=== PATIENT | female | born 1955 | race African-American/Black ===

== ENCOUNTER 2017-01-12 17:17 | Emergency (ER) | payer MEDICARE, OTHER ==
[~2017-01-12] VITALS: Ht 170.2 cm; Wt 107.0 kg
[2017-01-12] MEDS ORDERED: IBUPROFEN 600MG TABLET PO ONE (18:00)
[2017-01-12 18:22] LABS: BASOPHILS % 1.1 % (0.0-2.0); EOSINOPHILS % 1.9 % (0.0-5.0); HEMATOCRIT. 30.8 % (36.0-48.0); HEMOGLOBIN. 10.5 g/dL (12.0-16.0); LYMPHOCYTES % 41.8 % (20.0-50.0); MEAN CORPUSCULAR HEMOGLOBIN 31.8 pg (28.0-32.0); MEAN CORPUSCULAR VOLUME 93.7 fL (81.0-99.0); MEAN PLATELET VOLUME 8.6 fl (7.4-10.4); MONOCYTES % 8.9 % (2.0-8.0); NEUTROPHILS % 46.3 % (40.0-76.0); PLATELET 302 x1000/uL (130-400); RED BLOOD CELL COUNT 3.28 mill/uL (4.2-5.4); RED CELL DISTRIBUTION WIDTH 13.6 % (11.6-14.6)
[2017-01-12 18:25] LABS: CHLORIDE 101 mEq/L (98-107)
[2017-01-12 18:32] LABS: CARBON DIOXIDE 29 mEq/L (21-32)
[2017-01-12 18:37] LABS: TROPONIN I < 0.02 ng/mL (0.00-0.04)
[2017-01-12 18:49] LABS: D-DIMER 0.25 mg/L FEU (<0.50); PARTIAL THROMBOPLASTIN TIME 31.5 sec (24.0-34.0); PROTHROMBIN TIME 10.5 sec
[2017-01-12 19:37] VITALS: BP 148/84
== END 2017-01-12 21:15 | disposition home or self-care (01) ==
LOC: ER 20:57
DX: R07.89 Other chest pain (principal); E03.9 Hypothyroidism, unspecified; D64.9 Anemia, unspecified; K21.9 Gastro-esophageal reflux disease without esophagitis; I10 Essential (primary) hypertension; F20.9 Schizophrenia, unspecified
CPT/HCPCS: 36415; 71010; 80053; 83690; 83880; 84443; 84484; 85025; 85379; 85610; 85730; 93005; 99285

== ENCOUNTER 2017-02-12 18:18 | Emergency (ER) | payer MEDICARE, OTHER ==
[~2017-02-12] VITALS: Ht 172.7 cm; Wt 102.0 kg
[2017-02-12 18:37] VITALS: BP 174/71
== END 2017-02-12 22:10 | disposition left against medical advice (07) ==
LOC: ER 18:18
DX: R51 Headache (principal); Z53.21 Procedure and treatment not carried out due to patient leaving prior to being seen by health care provider